=== PATIENT | male | born 1985 | race Caucasian/White ===

== ENCOUNTER → 2016-03-04 | Outpatient (CLI) | payer BC ==
[~2016-03-04] MED LIST: ADAL40KI SQ; AMOX1TAB12 PO; CALC500T55 PO; CPR500T PO; FLUO20SO PO; FRSM10B60 PO; HYDR-3754 PO; INFL100V IV; METR500T17 PO; OMEP20TA33 PO; PRD20T PO; PRED15SO18 PO; PRED20TA PO; TPN; VEDO300V IV
[2016-03-04 15:01] LABS: BASOPHILS % (AUTO) 0 % (0-2); EOSINOPHILS % (AUTO) 1 % (0-4); LYMPHOCYTES # (AUTO) 1.4 X10^3; MEAN CORPUSCULAR HEMOGLOBIN 25.5 PG (26.0-34.0); MEAN CORPUSCULAR HGB CONC 34.4 g/dL (31.0-37.0); MEAN CORPUSCULAR VOLUME 74 FL (80-100); MEAN PLATELET VOLUME 12.2 FL (6.0-9.5); MONOCYTES # (AUTO) 0.7 X10^3; MONOCYTES % (AUTO) 10 % (3-11); NEUTROPHILS # (AUTO) 5.3 X10^3; NEUTROPHILS % (AUTO) 71 % (51-67); PLATELET COUNT 204 10^3uL (150-450); WHITE BLOOD COUNT 7.48 10^3uL (4.0-11.0)
[2016-03-04 15:31] LABS: ALBUMIN 4.1 g/dL (3.4-5.0); CALCULATED IONIZED CALCIUM 3.9 mg/dL (3.8-4.6); TOTAL PROTEIN 7.4 g/dL (6.4-8.5)
== END ==
LOC: LAB 14:52
PROVIDERS: ATTEND Surgery
DX: K50.90 Crohn's disease, unspecified, without complications (principal)
CPT/HCPCS: 36415; 80053; 85025

== ENCOUNTER → 2016-03-07 | Outpatient (CLI) | payer BC ==
--- NOTE | 2016-03-07 09:48 | Diagnostic Imaging Report ---
PROCEDURE: CT abdomen and pelvis with and without contrast. TECHNIQUE: Precontrast acquisitions were acquired through the abdomen and pelvis. Multiple contiguous axial images were obtained through the abdomen and pelvis after the administration of intravenous contrast. INDICATION: Crohn's disease, possible right lower quadrant fistula. CONTRAST: 80 cc of Omnipaque-300 was given intravenously. COMPARISON STUDY: CT scan dated 08/30/2015. FINDINGS: The lung bases are now clear. There are no pleural effusions. The splenomegaly appears stable. The liver, gallbladder, pancreas, adrenal glands, and kidneys are normal. Suture lines are seen near the cecum and distal ileum. There is a short segment of bowel wall thickening of the ilium right at the ileocecal junction. No inflammation is seen around this. There are a few small lymph nodes in the right lower quadrant. The largest one measures 9 mm. At this level, there is a bowel loop herniating into the anterior abdominal wall. Anastomotic lines are seen around this. Phlegmonous changes are seen extending from this to the skin surface, consistent with a possible fistula. No ascites, free air, or loculated fluid collections are identified. The urinary bladder demonstrates mild diffuse wall thickening, consistent with cystitis. No obstruction or ileus is seen. The osseous structures appear unremarkable. IMPRESSION: 1. There is a right lower quadrant abdominal wall hernia with a small bowel loop near the terminal ileum protruding into this. Phlegmonous reaction extending from here to the skin surface is consistent with the patient's fistula. 2. Mild bowel wall thickening is seen in the terminal ileum. 3. There are some adjacent lymph nodes which are probably reactive. 4. Stable splenomegaly. 5. The urinary bladder chapman are mildly thickened, consistent with cystitis. Dictated by: Dictated on workstation # [id number]
== END ==
LOC: RAD 07:02
PROVIDERS: ATTEND Surgery
DX: K50.90 Crohn's disease, unspecified, without complications (principal); K43.9 Ventral hernia without obstruction or gangrene
CPT/HCPCS: 74178; Q9967